=== PATIENT | male | born 1965 | race Caucasian/White ===

== ENCOUNTER 2016-11-19 14:53 | Emergency (ER) | payer OTHER ==
[~2016-11-19] VITALS: Ht 190.5 cm; Wt 110.0 kg
[2016-11-19 14:57] VITALS: BP 154/92; PULSE 72; RESP 14; TEMP 97.5; O2SAT 96
[2016-11-19] MEDS ORDERED: TETANUS/DIPHTHERIA TOXOID ADULT 0.5 ML VIAL IM ONE (16:00)
[2016-11-19] MEDS ORDERED: BUPIVACAINE HCL PF 0.5% 10 ML VIAL INFIL ONE (16:00)
[2016-11-19] MEDS ORDERED: LIDOCAINE HCL 1% 50 ML VIAL INFIL ONE (16:00)
--- NOTE | 2016-11-19 16:03 | PD ---
HPI Chief Complaint: Laceration/Skin Injury Time Seen by Provider: 16:02 Travel History International Travel<30 days: No Contact w/Intl Traveler<30days: No Traveled to known affect area: No History of Present Illness HPI 81-year-old male presents emergency Department with complaint of a laceration to the distal aspect of his right fourth digit that occurred approximately 11 AM this morning from some kind of saw. It was a dirty saw. He is not up-to- date on his tetanus vaccination. He denies paresthesias, loss of sensation to the affected finger. Reports decreased range of motion secondary to pain and swelling. Has not taken any medications or tried any treatments to alleviate his symptoms. He has a blood pressure to control bleeding. Allergies to codeine, penicillin, tetanus toxoid that contains horse serum. No other modifying factors or associated signs and symptoms. PFSH Past Medical History Arthritis: No Asthma: No Autoimmune Disease: No Anxiety: No Depression: No Heart Rhythm Problems: No Cancer: No Cardiovascular Problems: No High Cholesterol: No Chemotherapy: No Chest Pain: No Congestive Heart Failure: No COPD: No Cerebrovascular Accident: No Diabetes: No Diminished Hearing: Yes ([place]) Endocrine: No GERD: No Genitourinary: No Hiatal Hernia: No Immune Disorder: No Kidney Stones: Yes (passed stones) Musculoskeletal: No Neurologic: No Psychiatric: No Reproductive: No Respiratory: Yes (bronchitis) Migraines: No Radiation Therapy: No Renal Failure: No Seizures: No Sickle Cell Disease: No Sleep Apnea: No Thyroid Disease: No Ulcer: No Past Surgical History Abdominal Surgery: No AICD: No Arteriovenous Shunt: No Cardiac Surgery: No Ear Surgery: No Endocrine Surgery: No Eye Surgery: Yes Genitourinary Surgery: No Gynecologic Surgery: No Insulin Pump: No Joint Replacement: No Oral Surgery: No Pacemaker: No Thoracic Surgery: No Social History Alcohol Use: Yes (SELDOM) Tobacco Use: Yes (2-3 PPD) Substance Use: No Allergies-Medications (Allergen,Severity, Reaction): Coded Allergies: Codeine (Verified Allergy, Severe, RASH, 11/19/16) Penicillin (Verified Allergy, Severe, RASH, 11/19/16) Tetanus Toxoid (Verified Allergy, Severe, HORSE SERUM VERSION PER PT, 11/19) Reported Meds & Prescriptions Reported Meds & Active Scripts Active Ibuprofen 800 Mg Tab 800 Mg PO Q6HR PRN Keflex (Cephalexin) 500 Mg Cap 500 Mg PO Q8H 7 Days Review of Systems Except as stated in HPI: all other systems reviewed are Neg Physical Exam Narrative GENERAL: Well-nourished, well-developed male patient, in no acute distress SKIN: Warm and dry. Distal medial aspect of right fourth digit with approximately 2-1/2 cm laceration; the fingers with full range of motion and sensory intact; less than 3 second cap refill; with good opposition. Right upper extremity is supple and non-tense with 2+ radial pulse and sensory intact without erythema or edema. HEAD: Atraumatic. Normocephalic. EYES: Pupils equal and round. No scleral icterus. No injection or drainage. ENT: Mucosa pink and moist. Airway patent. NECK: Trachea midline. CARDIOVASCULAR: Regular rate. . RESPIRATORY: No accessory muscle use. GASTROINTESTINAL: Rounded. MUSCULOSKELETAL: No obvious deformities. No clubbing. No cyanosis. No edema. NEUROLOGICAL: Awake and alert. Oriented 3. No obvious cranial nerve deficits. Motor grossly within normal limits. Normal speech. PSYCHIATRIC: Appropriate mood and affect; insight and judgment normal. Data Data Last Documented VS Vital Signs Date Time Temp Pulse Resp B/P Pulse Ox O2 Delivery O2 Flow Rate FiO2 11/19/16 15:10 11/19/16 14:57 97.5 72 14 96 Room Air Orders Bupivacaine Pf 0.5% Inj (Marcaine Pf 0.5 (11/19/16 16:00) Lidocaine 1% Inj (50 Ml) (Xylocaine 1% I (11/19/16 16:00) Finger ([id number]) (11/19/16 ) Tetanus/Diphtheria Tox Adult (Tetanus/Di (11/19/16 16:00) Wound Care (11/19/16 17:04) MDM Medical Decision Making Medical Screen Exam Complete: Yes Emergency Medical Condition: Yes Medical Record Reviewed: Yes Differential Diagnosis Laceration, contusion, partial amputation Narrative Course 51-year-old male with a laceration to right fourth digit. Tetanus updated in the ER. See my procedure note for laceration repair. Right fourth digit x-ray ordered. 1634: Right fourth digit x-ray concludes an unremarkable examination. 1709: Instructed patient to return to the emergency department or follow-up with primary care in 7-10 days for suture removal. Keflex, ibuprofen prescribed for home. Patient verbalized understanding and agreement with treatment plan. Patient is medically cleared and stable for discharge. Discussed reasons to return to the emergency department. Instructed patient to follow up with primary care provider. Patient agrees with treatment plan. The patients vital signs are stable and the patient is stable for outpatient follow- up and treatment. Patient discharged home, stable and in no acute distress. Procedures Procedure Narrative LACERATION LOCATION: Distal lateral aspect of the right fourth finger LENGTH: 2-1/2 cm NUMBER OF STITCHES/AMY: 6 simple interrupted sutures REPAIR: The area of the laceration was prepped with Betadine and sterilely draped. Right fourth finger was digitally blocked with 0.5% bupivacaine and 1% lidocaine.. The wound was copiously irrigated and explored without evidence of foreign body, tendon injury or neurovascular injury. The wound was closed using 4-0 Prolene. This was a single layer repair. A sterile dressing was applied. The patient was advised to keep the dressing clean and dry. Patient tolerated the procedure well. Diagnosis Primary Impression: Laceration of finger of right hand Qualified Code: S61.219A - Laceration of finger of right hand, initial encounter Referrals: Primary Care Physician Patient Instructions: Care For Your Stitches (ED), Finger Laceration (ED), General Instructions Departure Forms: Tests/Procedures, Work Release Enter return to work date: Nov 23, 2016 Additional Instructions: Keep area clean and dry Limit right hand fourth finger activity to decrease risk of sutures coming undone; splint for support Ibuprofen or Tylenol as directed and as needed for pain and inflammation Ice pack to area as needed to decrease pain Return to the emergency department or follow-up with primary care provider in 7- 10 days for suture removal Follow up with primary care provider Return to the emergency department immediately with worsening of symptoms, particularly if reddened streaks up or down the affected extremity from the suture site, fever, numbness/tingling in the affected extremity, loss of sensation in the affected extremity, severe swelling of the affected Med/Other Pt SpecificInfo: Prescription(s) given Scripts Ibuprofen 800 Mg Pcu180 Mg PO Q6HR PRN (PAIN) #30 TAB Ref 0 Prov:Kortney Haile [employer] 11/19/16 Cephalexin (Keflex)500 Mg Ras697 Mg PO Q8H 7 Days Ref 0 Prov:Kortney Haile 11/19/16 Disposition: 01 DISCHARGE HOME Condition: Stable Kortney Haile Nov 19, 2016 16:02
--- NOTE | 2016-11-19 16:22 | RADRPT ---
EXAM DATE/TIME: 11/19/2016 16:07 [facility] COMPARISON: No previous studies available for comparison. INDICATIONS : Right hand laceration from tool. MEDICAL HISTORY : None. SURGICAL HISTORY : None. ENCOUNTER: Initial ACUITY: 1 day PAIN SCORE: 10/10 LOCATION: Right distal 4th digit. FINDINGS: Examination of the fourth digit of the right hand demonstrates no evidence of fracture or dislocation . No radiopaque foreign bodies are seen. The soft tissues are intact. CONCLUSION: Unremarkable examination of the right fourth finger. Edmar Hood Jr., MD on November 19, 2016 at 16:20 Board Certified Radiologist. This report was verified electronically.
[2016-11-19] MEDS ORDERED: IBUP800T23 PO (16:38)
[2016-11-19] MEDS ORDERED: CEPH-460 PO (16:38)
== END 2016-11-19 17:34 | disposition home or self-care (01) ==
LOC: NEPB 14:53
DX: S61.214A Laceration without foreign body of right ring finger without damage to nail, initial encounter (principal); H91.93 Unspecified hearing loss, bilateral; F17.200 Nicotine dependence, unspecified, uncomplicated; Z23 Encounter for immunization; Z87.442 Personal history of urinary calculi; W45.8XXA Other foreign body or object entering through skin, initial encounter
CPT/HCPCS: 12001; 73140; 90471; 90714

== ENCOUNTER 2018-02-28 22:40 | Emergency (ER) | payer OTHER ==
[~2018-02-28] VITALS: Ht 190.5 cm; Wt 105.5 kg
[~2018-02-28 22:40] MED LIST: CEPH-460 PO; IBUP1TAB7 PO
[2018-02-28 22:43] VITALS: BP 121/77; PULSE 80; RESP 16; TEMP 98.2; O2SAT 95
[2018-02-28 23:08] VITALS: BP 131/93; PULSE 84; RESP 18; O2SAT 97
[2018-02-28] MEDS ORDERED: TAMSULOSIN HCL 0.4 MG CAP PO ONE (23:15)
[2018-02-28] MEDS ORDERED: MORPHINE SULFATE 4 MG/ML INJ IV ONE (23:15)
[2018-02-28] MEDS ORDERED: SODIUM CHLOR 0.9% 1000 ML INJ 1,000 ML IV ONE (23:15)
[2018-02-28] MEDS ORDERED: diphenhydrAMINE HCL 50 MG/ML VIAL IV PUSH ONE (23:15)
[2018-02-28] MEDS ORDERED: PROCHLORPERAZINE INJ 10 MG/2 ML VIAL IV PUSH ONE (23:15)
[2018-02-28] MEDS ORDERED: KETOROLAC TROMETHAMINE 30 MG/ML (IVP) VIAL IV PUSH ONE (23:30)
--- NOTE | 2018-02-28 23:30 | PD ---
HPI . Flank pain Chief Complaint: Flank/Kidney Pain Time Seen by Provider: 22:58 Travel History International Travel<30 days: No Contact w/Intl Traveler<30days: No Traveled to known affect area: No History of Present Illness HPI Patient presents with chief complaint of right flank pain. Onset was 3 days ago. Patient states that he has a strong history of kidney stones. He had hoped that the stone would pass which is what caused his delay in presentation. However, he continues to have significant right flank pain. He states that he has passed a couple of small stones in the past few days. However, his pain has persisted. His pain is associated with occasional nausea and vomiting. He rates the current intensity at 4/10. The pain radiates to the right testicle. He reports that he has never required lithotripsy, basket extraction, etc. PFSH Past Medical History Arthritis: No Asthma: No Autoimmune Disease: No Anxiety: No Depression: No Heart Rhythm Problems: No Cancer: No Cardiovascular Problems: No High Cholesterol: No Chemotherapy: No Chest Pain: No Congestive Heart Failure: No COPD: No Cerebrovascular Accident: No Diabetes: No Diminished Hearing: Yes ([place]) Endocrine: No GERD: No Genitourinary: No Hiatal Hernia: No Immune Disorder: No Kidney Stones: Yes (passed stones) Musculoskeletal: No Neurologic: No Psychiatric: No Reproductive: No Respiratory: Yes (bronchitis) Migraines: No Radiation Therapy: No Renal Failure: No Seizures: No Sickle Cell Disease: No Sleep Apnea: No Thyroid Disease: No Ulcer: No Influenza Vaccination: No Past Surgical History Abdominal Surgery: No AICD: No Arteriovenous Shunt: No Cardiac Surgery: No Ear Surgery: No Endocrine Surgery: No Eye Surgery: Yes Genitourinary Surgery: No Gynecologic Surgery: No Insulin Pump: No Joint Replacement: No Oral Surgery: No Pacemaker: No Thoracic Surgery: No Social History Alcohol Use: Yes ([place]) Tobacco Use: Yes (2-3 PPD) Substance Use: No Allergies-Medications (Allergen,Severity, Reaction): Coded Allergies: codeine (Verified Allergy, Severe, RASH, 02/28/18) penicillin G (Verified Allergy, Severe, RASH, 02/28/18) tetanus toxoid, adsorbed (Verified Allergy, Severe, HORSE SERUM VERSION PER PT, 02/28/18) Reported Meds & Prescriptions Reported Meds & Active Scripts Active Phenergan (Promethazine HCl) 25 Mg Tablet 25 Mg PO Q6H PRN Percocet (Oxycodone-Acetaminophen) 5-325 mg Tab 1 Tab PO Q4H PRN Flomax (Tamsulosin HCl) 0.4 Mg Cap 0.4 Mg PO HS Ibuprofen 800 Mg Tab 800 Mg PO Q6HR PRN Keflex (Cephalexin) 500 Mg Cap 500 Mg PO Q8H 7 Days Review of Systems Except as stated in HPI: all other systems reviewed are Neg Physical Exam Narrative GENERAL: This patient is obviously uncomfortable. I found him standing up by the bed bent over at the waist. SKIN: warm/dry. HEAD: Normocephalic. Atraumatic. EYES: Pupils equal and round. No scleral icterus. No injection or drainage. ENT: No nasal bleeding or discharge. Mucous membranes pink and moist. NECK: Trachea midline. Full range of motion without pain.. CARDIOVASCULAR: Regular rate and rhythm. RESPIRATORY: No accessory muscle use. Clear to auscultation. Breath sounds equal bilaterally. GASTROINTESTINAL: Abdomen soft. Tenderness on the right. Bowel sounds present. Nondistended. : Positive right CVA tenderness. MUSCULOSKELETAL: No obvious deformities. NEUROLOGICAL: Awake and alert. No obvious cranial nerve deficits. Motor grossly within normal limits. Normal speech. PSYCHIATRIC: Appropriate mood and affect; insight and judgment normal. Data Data Last Documented VS Vital Signs Date Time Temp Pulse Resp B/P (MAP) Pulse Ox O2 Delivery O2 Flow Rate FiO2 03/01/18 00:42 18 02/28/18 23:08 84 131/93 (106) 97 Room Air 02/28/18 22:43 98.2 Orders Orders Morphine Inj (Morphine Inj) (02/28/18 23:15) Prochlorperazine Inj (Compazine Inj) (02/28/18 23:15) Diphenhydramine Inj (Benadryl Inj) (02/28/18 23:15) Sodium Chlor 0.9% 1000 Ml Inj (Ns 1000 M (02/28/18 23:15) ^ Saline Lock (02/28/18 23:01) Urinalysis - C+S If Indicated (02/28/18 23:01) Tamsulosin (Flomax) (02/28/18 23:15) Ketorolac Inj (Toradol Inj) (02/28/18 23:30) Labs Laboratory Tests Test 03/01/18 00:22 Urine Color YELLOW Urine Turbidity CLEAR Urine pH 6.0 Urine Specific Bailey 1.025 Urine Protein 30 mg/dL Urine Glucose (UA) NEG mg/dL Urine Ketones NEG mg/dL Urine Occult Blood TRACE Urine Nitrite NEG Urine Bilirubin NEG Urine Urobilinogen 4.0 MG/DL Urine Leukocyte Esterase NEG Urine RBC 0-3 /hpf Urine WBC 0-2 /hpf Urine Squamous Epithelial Cells 0-5 /hpf Urine Bacteria NONE /hpf Microscopic Urinalysis Comment CULT NOT INDICATED MDM Medical Decision Making Medical Screen Exam Complete: Yes Emergency Medical Condition: Yes Medical Record Reviewed: Yes (Patient was last seen here in 2012 with a kidney stone. He was treated with [place] and Flexeril.) Differential Diagnosis Differential diagnosis of flank pain includes but is not limited to kidney stone , pyelonephritis, musculoskeletal pain, PE Narrative Course Patient presents with right flank pain. He has a history of previous kidney stones. His presentation is compatible with a kidney stone. He has never required lithotripsy or basket extraction. Therefore, imaging will not be done , at least acutely. An IV has been ordered and he will be given IV morphine, Compazine, Benadryl, Toradol and oral Flomax. Disposition will be based upon his response to treatment. The patient is now resting comfortably. UA is negative for infection. Florencia wilson has been queried and reviewed He is being discharged with prescriptions for Percocet, Phenergan, ibuprofen and Flomax. Diagnosis Primary Impression: Renal colic on right side Patient Instructions: General Instructions, Kidney Stones (DC) Med/Other Pt SpecificInfo: Prescription(s) given Scripts Promethazine (Phenergan) 25 Mg Tablet 25 MG PO Q6H Y for NAUSEA OR VOMITING, #12 TAB 0 Refills Prov: Barbara Hidalgo MD 03/01/18 Oxycodone-Acetaminophen (Percocet) 5-325 mg Tab 1 TAB PO Q4H Y for PAIN, #12 TAB 0 Refills Prov: Barbara Hidalgo MD 03/01/18 Tamsulosin (Flomax) 0.4 Mg Cap 0.4 MG PO HS for Manage Prostate Problems, #30 CAP 0 Refills Prov: Barbara Hidalgo MD 03/01/18 Ibuprofen (Ibuprofen) 800 Mg Tab 800 MG PO Q6HR Y for PAIN, #30 TAB 0 Refills Prov: Barbara Hidalgo MD 03/01/18 Disposition: 01 DISCHARGE HOME Condition: Stable Barbara Hidalgo MD February 28, 2018 23:30
[2018-03-01 00:02] VITALS: BP 134/86; PULSE 66; RESP 18; O2SAT 97
[2018-03-01 00:40] LABS: BILIRUBIN, URINE NEG (NEG); BLOOD, URINE TRACE (NEG); GLUCOSE,URINE NEG (NEG); KETONE, URINE NEG (NEG); NITRITE,URINE NEG (NEG); URINE COLOR YELLOW (YELLW/STRAW); URINE LEUKOCYTE ESTERASE NEG (NEG)
[2018-03-01 00:42] VITALS: RESP 18
[2018-03-01] MEDS ORDERED: IBUP1TAB7 PO (00:43)
[2018-03-01] MEDS ORDERED: PERC5TAB12 PO (00:43)
[2018-03-01] MEDS ORDERED: TAMS5CAP PO (00:43)
[2018-03-01] MEDS ORDERED: PROM25TA10 PO (00:43)
[2018-03-01 00:48] LABS: RBC, URINE 0-3 /hpf (0-3); SQUAMOUS EPITHELIAL CELL URINE 0-5 /hpf (0-5); WBC, URINE 0-2 /hpf (0-5)
[2018-03-01 01:06] VITALS: BP 116/79
== END 2018-03-01 01:10 | disposition home or self-care (01) ==
LOC: PHED 22:40
DX: N23 Unspecified renal colic (principal); Z87.442 Personal history of urinary calculi
CPT/HCPCS: 81001; 96361; 96374; 96375; 96376; 99284; J0780; J1200; J1885; J2270; J7030